=== PATIENT | female | born 1940 | race Caucasian/White ===

== ENCOUNTER 2016-07-01 23:28 | Emergency (ER) | payer MEDICARE, OTHER ==
[2016-07-02 00:12] VITALS: BP 145/74
[2016-07-02] MEDS ORDERED: fentaNYL 100 MCG/2 ML SDV IVPUSH ONE (00:24)
--- NOTE | 2016-07-02 00:24 | EDM.PDOC ---
ED HPI Trauma - General Chief Complaint: Lower Extremity Injury/Pain Stated Complaint: [facility] Time Seen by Provider: 07/01/16 23:45 Source: Reports: Patient, Old records, RN notes reviewed History Limitations: Reports: No limitations - History of Present Illness INITIAL COMMENTS - FREE TEXT/NARRATIVE: EMS arrival, fentanyl 50 mcg IV prior to arrival with good relief of pain Chief complaint Left knee pain HPI 76-year-old female lives on her own Has been picking at her house and packing because it's too large to place, since she lost her house mate. She's been having some aching in her left leg in particular over the last few days and some crunching and grinding pain behind the kneecap. She did wake her last night and she's been able to walk around limping but unable to fully weight-bear this evening. She was standing at home and move suddenly and then she felt a pop. She held onto pillar until the pain subsided been unable to weight-bear she fell down to the floor. She managed to crawl in order to get to a phone to call for help. She has pain on the top side of the kneecap and on the inside of the knee. 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: Musculoskeletal History: Reports: Arthritis - Past Surgical History Head Surgeries/Procedures: Reports: None Social & Family History - Tobacco Use Smoking Status *Q: Current Every Day Smoker Years of Tobacco use: 58 Packs/Tins Daily: 0.2 - Caffeine Use Caffeine Use: Reports: Coffee - Alcohol Use Days Per Week of Alcohol Use: 7 Number of Drinks Per Day: 2 Total Drinks Per Week: 14 - Recreational Drug Use Recreational Drug Use: No Review of Systems - Review of Systems Review Of Systems: See Below Constitutional: Reports: no symptoms Respiratory: Reports: No Symptoms Cardiovascular: Reports: no symptoms GI/Abdominal: Reports: No symptoms Musculoskeletal: Reports: joint pain (Left knee), other (Gait problem) Skin: Reports: no symptoms Neurological: Reports: No Symptoms Trauma Exam - Physical Exam Exam: See Below Exam Limited By: No limitations General Appearance: Reports: alert, mild distress, other (No difficulty speaking or breathing, Vital signs are normal) Head: Reports: atraumatic, normocephalic Neck: Reports: non-tender, full range of motion Respiratory Exam: Reports: no respiratory distress, no accessory muscle use Extremities: Reports: pain with movement (Left knee), tenderness (Medial aspect of the left knee along the joint line and on the superior aspect of the kneecap , crepitus with movement), unable to bear weight. Denies: joint effusion Neurologic: Reports: no motor/sensory deficits, alert, normal mood/affect Skin: Reports: Normal color, Warm/dry - Reece Coma Score Best Eye Response (Reece): (4) open spontaneously Best Verbal Response (Reece): (5) oriented Best Motor Response ([place]): (6) obeys commands Reece Total: 15 Course - Vital Signs Last Recorded V/S: Last Vital Signs Temp 36.6 C 07/01/16 23:39 Pulse 73 07/01/16 23:39 Resp 16 07/01/16 23:39 BP 145/74 H 07/01/16 23:39 Pulse Ox 95 07/01/16 23:39 - Orders/Labs/Meds Orders: Active Orders 24 hr Category Date Time Status Orthopedic Treatments [RC] ASDIRECTED Care 07/02/16 00:37 Active Knee 3V Lt [CR] Stat Exams 07/02/16 00:00 Taken Meds: Medications Discontinued Medications Generic Name Dose Route Start Last Admin Trade Name Deven PRN Reason Stop Dose Admin Fentanyl 50 mcg 07/02/16 00:24 07/02/16 00:38 Sublimaze IVPUSH 07/02/16 00:25 50 mcg ONETIME ONE Administration - Re-Assessments/Exams Free Text/Narrative Re-Assessment/Exam: 07/02/16 00:24 76-year-old female with acute left knee pain following a subtle movement Pain on the medial and superior aspects of the knee. Fentanyl 50 mcg IV repeated X-ray left knee negative for acute changes, no spurs or degenerative changes seen, small joint effusion Assessment Internal derangement of the knee Immobilizer Crutches as needed Pain medicine Followup primary care one week 07/02/16 00:38 Departure - Departure Time of Disposition: 23:55 Disposition: Home, Self-Care 01 Condition: good Clinical Impression: Internal derangement of left knee Prescriptions: Hydrocodone/Acetaminophen [Hydrocodon-Acetaminophen 5-325] 1 each PO Q4H PRN # 12 tablet PRN Reason: Moderate to severe pain left k Instructions: Knee Sprain, [id number] Referrals: PCP,None [Primary Care Provider] - Forms: ED Department Discharge Additional Instructions: Please make an appointment approximately one week to have your knee rechecked by your physician - My Orders Last 24 Hours: My Active Orders 07/02/16 00:00 Knee 3V Lt [CR] Stat 07/02/16 00:37 Orthopedic Treatments [RC] ASDIRECTED - Assessment/Plan Last 24 Hours: My Active Orders 07/02/16 00:00 Knee 3V Lt [CR] Stat 07/02/16 00:37 Orthopedic Treatments [RC] ASDIRECTED
--- NOTE | 2016-07-02 08:45 | CR ---
Knee 3V Lt INDICATION: left knee sudden pain FINDINGS: Tiny left knee effusion or synovitis. Exam otherwise negative.
== END 2016-07-02 01:07 | disposition home or self-care (01) ==
LOC: JP.ED 23:28
DX: M23.8X2 Other internal derangements of left knee (principal); H35.30 Unspecified macular degeneration; M19.90 Unspecified osteoarthritis, unspecified site; F17.200 Nicotine dependence, unspecified, uncomplicated; Z88.8 Allergy status to other drugs, medicaments and biological substances; Z91.048 Other nonmedicinal substance allergy status
CPT/HCPCS: 73562; 96374; 99284; J3010

== ENCOUNTER 2017-10-19 07:53 | Inpatient (IN) | payer MEDICARE, OTHER ==
[2017-10-19] MEDS ORDERED: HYDROmorphone 0.5 MG/0.5 ML Syringe IVPUSH ONE ×2 (08:50→10:40)
[2017-10-19] MEDS ORDERED: Sodium Chloride 0.9% 1,000 ML IV ONE (08:50)
--- NOTE | 2017-10-19 08:54 | EDM.PDOC ---
ED HPI GENERAL MEDICAL PROBLEM - General Chief Complaint: Lower Extremity Injury/Pain Stated Complaint: CAN'T WALK PAIN IN RIGHT HIP Time Seen by Provider: 10/19/17 08:40 Source of Information: Reports: Patient History Limitations: Reports: No Limitations - History of Present Illness INITIAL COMMENTS - FREE TEXT/NARRATIVE: 37-year-old female with right lower abdominal pain and right hip pain for the past 3 days, it started after she was riding on a lawnmower. Over the past 3 days it's been persistent, deep in her right lower abdomen and pelvis radiating down her right leg. She's having difficulty walking. She has decreased appetite , unknown if she's had a fever. No urinary symptoms. She spent all day yesterday on the couch because it was painful to move. Onset: Gradual Duration: Day(s): (3 days) Location: Reports: Abdomen Severity: Moderate Associated Symptoms: Reports: Loss of Appetite. Denies: Cough, Fever/Chills, Shortness of Breath Right Hip Pain Score (Numeric/FACES): 5 - Related Data Allergies Allergy/AdvReac Type Severity Reaction Status Date / Time nickel Allergy Blisters Verified 10/19/17 08:24 povidone-iodine Allergy Facial Verified 10/19/17 10:20 [From Betadine] Swelling soap [From Betadine] Allergy Facial Verified 10/19/17 10:20 Swelling Home Meds: Home Meds Ibuprofen [Advil] 400 mg PO Q6H PRN 09/01/16 [History] Past Medical History HEENT History: Reports: Macular Degeneration Genitourinary History: Reports: Other (See Below) Other Genitourinary History: bladder infection 1 1/2 weeks ago antibiotics 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: Musculoskeletal History: Reports: Arthritis - Infectious Disease History Infectious Disease History: Reports: Chicken Pox, Measles - Past Surgical History Head Surgeries/Procedures: Reports: None HEENT Surgical History: Reports: Cataract Surgery, Other (See Below) Other HEENT Surgeries/Procedures: teeth pulled Female Surgical History: Reports: None Musculoskeletal Surgical History: Reports: None Social & Family History - Tobacco Use Smoking Status *Q: Current Every Day Smoker Years of Tobacco use: 40 Packs/Tins Daily: 0.5 Used Tobacco, but Quit: No Second Hand Smoke Exposure: No - Caffeine Use Caffeine Use: Reports: Coffee - Alcohol Use Days Per Week of Alcohol Use: 7 Number of Drinks Per Day: 2 Total Drinks Per Week: 14 Date of Last Drink: 10/18/17 Time of Last Drink: 17:00 - Recreational Drug Use Recreational Drug Use: No ED ROS GENERAL - Review of Systems Review Of Systems: See Below Constitutional: Reports: Malaise. Denies: Fever, Chills HEENT: Reports: Other (Recent dental procedure and denture placement) Respiratory: Denies: Shortness of Breath, Cough Cardiovascular: Denies: Chest Pain GI/Abdominal: Reports: Abdominal Pain, Decreased Appetite. Denies: Constipation , Diarrhea, Nausea, Vomiting : Reports: Other (Recent UTI was treated, no current symptoms) Musculoskeletal: Reports: Leg Pain (Right upper leg is hurting) Skin: Reports: No Symptoms Neurological: Denies: Headache Psychiatric: Reports: No Symptoms ED EXAM, GENERAL - Physical Exam Exam: See Below Exam Limited By: No Limitations General Appearance: Alert, Mild Distress Eye Exam: Bilateral Eye: Normal Inspection Respiratory/Chest: No Respiratory Distress, Lungs Clear Cardiovascular: Regular Rate, Rhythm GI/Abdominal: Guarding, Rebound, Tender (Very tender in the right lower quadrant with guarding and rebound tenderness) Extremities: Normal Inspection (Despite perception of right lower extremity pain , she has full range of motion passively and no palpation tenderness) Course - Vital Signs Last Recorded V/S: Last Vital Signs Temp 97.2 F 10/19/17 13:46 Pulse 65 10/19/17 13:46 Resp 15 10/19/17 13:46 BP 138/68 10/19/17 13:46 Pulse Ox 96 10/19/17 13:46 - Orders/Labs/Meds Orders: Active Orders 24 hr Category Date Time Status UA W/MICROSCOPIC [URIN] Urgent Lab 10/19/17 09:51 Ordered Dextrose 5%-Lactated Ringers 1,000 ml Med 10/19/17 13:30 Active IV ASDIRECTED Iopamidol [Isovue-300 (61%)] Med 10/19/17 10:37 Active 100 ml IV . DIRECTED PRN Sodium Chloride 0.9% [Normal Saline] 80 ml Med 10/19/17 10:45 Active IV ASDIRECTED Sodium Chloride 0.9% [Saline Flush] Med 10/19/17 10:37 Active 10 ml FLUSH ONETIME PRN Medication Orders Sodium Chloride (Normal Saline) 80 mls @ 3 mls/sec IV ASDIRECTED BREANNA Last Admin: 10/19/17 10:43 Dose: 3 mls/sec Dextrose/Lactated Ringer's (Dextrose 5%-Lactated Ringers) 1,000 mls @ 100 mls/ hr IV ASDIRECTED BREANNA Stop: 10/19/17 23:29 Last Admin: 10/19/17 13:46 Dose: 100 mls/hr Iopamidol (Isovue-300 (61%)) 100 ml IV . DIRECTED PRN PRN Reason: RADIOLOGY EXAM Stop: 10/20/17 10:38 Last Admin: 10/19/17 10:43 Dose: 100 ml Sodium Chloride (Saline Flush) 10 ml FLUSH ONETIME PRN PRN Reason: per radiology protocol Last Admin: 10/19/17 10:41 Dose: 10 ml Labs: Laboratory Tests 10/19/17 10/19/17 10/19/17 Range/Units 09:00 09:00 09:51 WBC 7.6 (4.5-11.0) K/uL RBC 4.91 (3.30-5.50) M/uL Hgb 15.1 H (12.0-15.0) g/dL Hct 45.1 (36.0-48.0) % MCV 92 (80-98) fL MCH 31 (27-31) pg MCHC 34 (32-36) % Plt Count 259 (150-400) K/uL Neut % (Auto) 71 H (36-66) % Lymph % (Auto) 19 L (24-44) % [place] % (Auto) 8 H (2-6) % Eos % (Auto) 2 (2-4) % Baso % (Auto) 0 (0-1) % Sodium 141 (140-148) mmol/L Potassium 3.6 (3.6-5.2) mmol/L Chloride 106 (100-108) mmol/L Carbon Dioxide 24 (21-32) mmol/L Anion Gap 10.9 (5.0-14.0) mmol/L BUN 13 (7-18) mg/dL Creatinine 1.0 (0.6-1.0) mg/dL Est Cr Clr Drug Dosing 47.27 mL/min Estimated GFR (MDRD) 54 L (>60) Glucose 98 (74-106) mg/dL Calcium 8.9 (8.5-10.1) mg/dL Total Bilirubin 0.6 (0.2-1.0) mg/dL AST 19 (15-37) U/L ALT 23 (12-78) U/L Alkaline Phosphatase 94 (46-116) U/L Total Protein 6.8 (6.4-8.2) g/dL Albumin 3.5 (3.4-5.0) g/dL Globulin 3.3 (2.3-3.5) g/dL Albumin/Globulin Ratio 1.1 L (1.2-2.2) Urine Color Yellow Urine Appearance Clear Urine pH 8.0 (4.5-8.0) Ur Specific [place] 1.015 (1.008-1.030) Urine Protein Negative (NEGATIVE) mg/dL Urine Glucose (UA) Normal (NEGATIVE) mg/dL Urine Ketones Negative (NEGATIVE) mg/dL Urine Occult Blood Negative (NEGATIVE) Urine Nitrite Negative (NEGATIVE) Urine Bilirubin Negative (NEGATIVE) Urine Urobilinogen Normal (NORMAL) mg/dL Ur Leukocyte Esterase Negative (NEGATIVE) Urine RBC 0-5 (0-5) Urine WBC 0-5 (0-5) Ur Epithelial Cells Few Amorphous Sediment Not seen Urine Bacteria Not seen Urine Mucus Not seen Meds: Medications Generic Name Dose Route Start Last Admin Trade Name Frevivian PRN Reason Stop Dose Admin Sodium Chloride 80 mls @ 3 mls/sec 10/19/17 10:45 10/19/17 10:43 Normal Saline IV 3 mls/sec ASDIRECTED BREANNA Administration Dextrose/Lactated Ringer's 1,000 mls @ 100 mls/hr 10/19/17 13:30 10/19/17 13: 46 Dextrose 5%-Lactated Ringers IV 10/19/17 23:29 100 mls/hr ASDIRECTED BREANNA Administration Iopamidol 100 ml 10/19/17 10:37 10/19/17 10:43 Isovue-300 (61%) IV 10/20/17 10:38 100 ml . DIRECTED PRN Administration RADIOLOGY EXAM Sodium Chloride 10 ml 10/19/17 10:37 10/19/17 10:41 Saline Flush FLUSH 10 ml ONETIME PRN Administration per radiology protocol Discontinued Medications Generic Name Dose Route Start Last Admin Trade Name Freq PRN Reason Stop Dose Admin Dexamethasone Confirm 10/19/17 14:56 Dexamethasone Administered 10/19/17 14:57 Dose 4 mg .ROUTE .STK-MED ONE Fentanyl Confirm 10/19/17 14:55 Sublimaze Administered 10/19/17 14:56 Dose 250 mcg .ROUTE .STK-MED ONE Glycopyrrolate Confirm 10/19/17 14:56 Robinul Administered 10/19/17 14:57 Dose 1 mg .ROUTE .STK-MED ONE Hydromorphone HCl 0.5 mg 10/19/17 08:50 10/19/17 09:11 Dilaudid IVPUSH 10/19/17 08:51 0.5 mg ONETIME ONE Administration Hydromorphone HCl 0.5 mg 10/19/17 10:40 10/19/17 10:53 Dilaudid IVPUSH 10/19/17 10:41 0.5 mg ONETIME ONE Administration Sodium Chloride 1,000 mls @ 999 mls/hr 10/19/17 08:50 10/19/17 09:06 Normal Saline IV 10/19/17 09:50 999 mls/hr ONETIME ONE Administration Lidocaine/Epinephrine Confirm 10/19/17 14:53 Xylocaine 1% With Epinephrine 1:100,000 Administered 10/19/17 14:54 Dose 50 ml .ROUTE .STK-MED ONE Neostigmine Methylsulfate Confirm 10/19/17 14:56 Neostigmine Administered 10/19/17 14:57 Dose 5 mg .ROUTE .STK-MED ONE Ondansetron HCl Confirm 10/19/17 14:56 Zofran Administered 10/19/17 14:57 Dose 4 mg .ROUTE .STK-MED ONE Propofol Confirm 10/19/17 14:56 Diprivan 20 Ml Administered 10/19/17 14:57 Dose 200 mg .ROUTE .STK-MED ONE Rocuronium [place] Confirm 10/19/17 14:56 Zemuron Administered 10/19/17 14:57 Dose 50 mg .ROUTE .STK-MED ONE Succinylcholine Chloride Confirm 10/19/17 14:56 Quelicin Administered 10/19/17 14:57 Dose 200 mg .ROUTE .STK-MED ONE - Re-Assessments/Exams Free Text/Narrative Re-Assessment/Exam: 10/19/17 08:53 This pain appears to be originating in the lower abdomen or pelvis rather than the hip. An IV was started, patient was hydrated and given 0.5 mg of Dilaudid. CBC, CMP and UA was obtained with the intention of an abdominal CT when labs return. 10/19/17 13:15 CBC was normal, CMP was normal other than a GFR of 54. UA was completely normal. A CT scan was then obtained that showed a fairly significant cyst near or on the right ovary which was confirmed with an ultrasound. The cyst was almost 5 cm across. Reexamination revealed the patient's pain returning in the deep right lower quadrant. Her condition was discussed with Dr. Wu on the possibility of a right oophorectomy to see if it would relieve her pain, and also give the opportunity to send in for pathology. Departure - Departure Time of Disposition: 15:53 Disposition: Admitted As Inpatient 68 Condition: Fair Clinical Impression: Acute pelvic pain, female, Other ovarian cyst, right side - Discharge Information - My Orders Last 24 Hours: My Active Orders 10/19/17 09:51 UA W/MICROSCOPIC [URIN] Urgent 10/19/17 10:37 Iopamidol [Isovue-300 (61%)] 100 ml IV . DIRECTED PRN Sodium Chloride 0.9% [Saline Flush] 10 ml FLUSH ONETIME PRN 10/19/17 10:45 Sodium Chloride 0.9% [Normal Saline] 80 ml IV ASDIRECTED - Assessment/Plan Last 24 Hours: My Active Orders 10/19/17 09:51 UA W/MICROSCOPIC [URIN] Urgent 10/19/17 10:37 Iopamidol [Isovue-300 (61%)] 100 ml IV . DIRECTED PRN Sodium Chloride 0.9% [Saline Flush] 10 ml FLUSH ONETIME PRN 10/19/17 10:45 Sodium Chloride 0.9% [Normal Saline] 80 ml IV ASDIRECTED
[2017-10-19] MEDS ORDERED: Sodium Chloride 0.9% 10 ML Syringe FLUSH PRN (10:37)
[2017-10-19] MEDS ORDERED: Iopamidol 612 MG/ML 100 ML Bottle IV PRN (10:37)
[2017-10-19] MEDS ORDERED: Sodium Chloride 0.9% 80 ML IV SCH (10:45)
--- NOTE | 2017-10-19 11:21 | CT ---
Abdomen Pelvis w Cont CLINICAL HISTORY: Right lower quadrant pain COMPARISON: 2008. TECHNIQUE: Axial tomographic images are obtained from the dome of the diaphragm to the pubic symphysi s with IV contrast enhancement. No oral contrast was used. Auto dosage reduction and iterative recons truction techniques employed. FINDINGS: The lung bases are clear. The liver contains a few scattered tiny low-attenuation foci cons istent with the hepatic cysts. The some of these are seen on the 2009 study. The gallbladder has a no rmal appearance. The spleen has a normal size and shape. The pancreas shows no mass or inflammatory c hange. The adrenal glands appear normal bilaterally. The kidneys contains multiple low-attenuation st ructures consistent with renal cysts. There are prominent extrarenal pelvi bilaterally. The aorta ya s a normal contour. There is no suspicious retroperitoneal adenopathy. The appendix has a normal appe arance. The uterus is enlarged. There are multiple low-attenuation masses the seen within. The augmen inga these were present on the 2009 study. There is also densely calcified fibroid the inferiorly to t he left. The there is a fluid-filled mass in the right adnexal region measuring 4.3 x 3.7 x 4.7 cm. T he bladder has a normal contour. The inguinal regions are clear. Impression: Hepatic and left renal cysts Normal-appearing appendix 4.3 x 3.7 x 4.7 cm fluid density mass in the right adnexal region may represent a large ovarian cyst. This should be correlated with pelvic ultrasound considering patient's age Fibroid uterus
[2017-10-19] MEDS ORDERED: Dextrose 5%-Lactated Ringers 1,000 ML IV SCH (13:30)
--- NOTE | 2017-10-19 13:45 | US ---
Pelvis Non OB Comp, transabdominal and transvaginal CLINICAL HISTORY: Abnormal CT FINDINGS: The uterus measures 8.9 x 4.4 x 6.1 cm. There is moderately heterogeneous. There is a 3.3 x 3.2 x 2.9 cm hypoechoic focus felt to correlate to the findings on CT. There is a small [address]. In the right adnexal region is a 4.5 x 3.3 x 4.2 cm anechoic focus felt to represent a large ovar jyoti cyst. Left ovary measures 2.2 x 1.4 x 1.7 cm. IMPRESSION: 4.5 x 3.3 x 4.2 cm cyst in the right the ovary. The considering patient's age short-term follow-up is recommended in one to 2 months Fibroid uterus
[2017-10-19] MEDS ORDERED: Lidocaine 1% with EPINEPHrine 1:100,000 50 ML MDV ONE (14:53)
[2017-10-19] MEDS ORDERED: fentaNYL 250 MCG/5 ML SDV ONE (14:55)
[2017-10-19] MEDS ORDERED: Ondansetron 4 MG/2 ML SDV ONE (14:56)
[2017-10-19] MEDS ORDERED: Glycopyrrolate 0.2 MG/ML 5 ML MDV ONE (14:56)
[2017-10-19] MEDS ORDERED: Succinylcholine 200 MG/10 ML MDV ONE (14:56)
[2017-10-19] MEDS ORDERED: Propofol 200 MG/20 ML SDV ONE (14:56)
[2017-10-19] MEDS ORDERED: Rocuronium 50 MG/5 ML Vial ONE (14:56)
[2017-10-19] MEDS ORDERED: Dexamethasone 4 MG/ML SDV ONE (14:56)
[2017-10-19] MEDS ORDERED: Neostigmine Methylsulfate 1 MG/ML 5 ML Syringe ONE (14:56)
[2017-10-19] MEDS ORDERED: Bupivacaine 0.5% 50 ML MDV ONE (16:15)
[2017-10-19] MEDS ORDERED: Acetaminophen/HYDROcodone 325-5 MG Tab PO PRN (16:52)
[2017-10-19] MEDS ORDERED: fentaNYL 100 MCG/2 ML SDV ONE (17:10)
[2017-10-19] MEDS ORDERED: hydrOXYzine HCl 100 MG/2 ML SDV ONE (17:12)
[2017-10-19] MEDS ORDERED: hydrOXYzine HCl 100 MG/2 ML SDV IM ONE (17:19)
[2017-10-19] MEDS: Lactated Ringers 1,000 ML IV SCH (17:30)
[2017-10-19] MEDS: fentaNYL 100 MCG/2 ML SDV IVPUSH PRN (21:41)
[2017-10-19] MEDS: Docusate Sodium 100 MG Cap PO PRN (21:44)
[2017-10-19] MEDS ORDERED: hydrOXYzine HCl 100 MG/2 ML SDV IM PRN (21:50)
[2017-10-20] MEDS: Lactated Ringers 1,000 ML IV SCH (03:08)
--- NOTE | 2017-10-20 06:43 | PCM.SURGPN ---
- General Info Date of Service: 10/20/17 Date of Surgery/Procedure: 10/19/17 POD#: 1 Post-Op Diagnosis: Right ovarian cyst. Functional Status: Reports: Tolerating Diet (Clear liquids. ), Ambulating (With help.), Urinating, Incentive Spirometry - Review of Systems General: Reports: No Symptoms HEENT: Reports: No Symptoms Pulmonary: Reports: No Symptoms Cardiovascular: Reports: No Symptoms Gastrointestinal: Reports: No Symptoms Genitourinary: Reports: No Symptoms Musculoskeletal: Reports: Leg Pain (Pain in right groin radiating down into right thigh. ) Skin: Reports: No Symptoms Neurological: Reports: No Symptoms Psychiatric: Reports: No Symptoms - Patient Data Vitals - Most Recent: Last Vital Signs Temp 96.8 F 10/20/17 03:04 Pulse 64 10/20/17 03:04 Resp 16 10/20/17 03:04 BP 138/63 10/20/17 03:04 Pulse Ox 94 L 10/20/17 03:04 Weight - Most Recent: 158 lb I&O - Last 24 Hours: Intake & Output 10/19/17 10/19/17 10/20/17 14:59 22:59 06:59 Intake Total 100 1218 Output Total 400 Balance -300 1218 Lab Results Last 24 Hrs: Laboratory Results - last 24 hr 10/19/17 10/19/17 10/19/17 Range/Units 09:00 09:00 09:51 WBC 7.6 (4.5-11.0) K/uL RBC 4.91 (3.30-5.50) M/uL Hgb 15.1 H (12.0-15.0) g/dL Hct 45.1 (36.0-48.0) % MCV 92 (80-98) fL MCH 31 (27-31) pg MCHC 34 (32-36) % Plt Count 259 (150-400) K/uL Neut % (Auto) 71 H (36-66) % Lymph % (Auto) 19 L (24-44) % [place] % (Auto) 8 H (2-6) % Eos % (Auto) 2 (2-4) % Baso % (Auto) 0 (0-1) % Sodium 141 (140-148) mmol/L Potassium 3.6 (3.6-5.2) mmol/L Chloride 106 (100-108) mmol/L Carbon Dioxide 24 (21-32) mmol/L Anion Gap 10.9 (5.0-14.0) mmol/L BUN 13 (7-18) mg/dL Creatinine 1.0 (0.6-1.0) mg/dL Est Cr Clr Drug Dosing 47.27 mL/min Estimated GFR (MDRD) 54 L (>60) Glucose 98 (74-106) mg/dL Calcium 8.9 (8.5-10.1) mg/dL Total Bilirubin 0.6 (0.2-1.0) mg/dL AST 19 (15-37) U/L ALT 23 (12-78) U/L Alkaline Phosphatase 94 (46-116) U/L Total Protein 6.8 (6.4-8.2) g/dL Albumin 3.5 (3.4-5.0) g/dL Globulin 3.3 (2.3-3.5) g/dL Albumin/Globulin Ratio 1.1 L (1.2-2.2) Urine Color Yellow Urine Appearance Clear Urine pH 8.0 (4.5-8.0) Ur Specific [place] 1.015 (1.008-1.030) Urine Protein Negative (NEGATIVE) mg/dL Urine Glucose (UA) Normal (NEGATIVE) mg/dL Urine Ketones Negative (NEGATIVE) mg/dL Urine Occult Blood Negative (NEGATIVE) Urine Nitrite Negative (NEGATIVE) Urine Bilirubin Negative (NEGATIVE) Urine Urobilinogen Normal (NORMAL) mg/dL Ur Leukocyte Esterase Negative (NEGATIVE) Urine RBC 0-5 (0-5) Urine WBC 0-5 (0-5) Ur Epithelial Cells Few Amorphous Sediment Not seen Urine Bacteria Not seen Urine Mucus Not seen 10/20/17 10/20/17 Range/Units 05:10 05:10 WBC 11.1 H (4.5-11.0) K/uL RBC 4.47 (3.30-5.50) M/uL Hgb 13.9 (12.0-15.0) g/dL Hct 41.9 (36.0-48.0) % MCV 94 (80-98) fL MCH 31 (27-31) pg MCHC 33 (32-36) % Plt Count 216 (150-400) K/uL Neut % (Auto) 86 H (36-66) % Lymph % (Auto) 8 L (24-44) % [place] % (Auto) 6 (2-6) % Eos % (Auto) 0 L (2-4) % Baso % (Auto) 0 (0-1) % Sodium 140 (140-148) mmol/L Potassium 4.2 (3.6-5.2) mmol/L Chloride 107 (100-108) mmol/L Carbon Dioxide 26 (21-32) mmol/L Anion Gap 7.2 (5.0-14.0) mmol/L BUN 13 (7-18) mg/dL Creatinine 0.9 (0.6-1.0) mg/dL Est Cr Clr Drug Dosing 52.52 mL/min Estimated GFR (MDRD) > 60 (>60) Glucose 103 (74-106) mg/dL Calcium 8.6 (8.5-10.1) mg/dL Total Bilirubin (0.2-1.0) mg/dL AST (15-37) U/L ALT (12-78) U/L Alkaline Phosphatase (46-116) U/L Total Protein (6.4-8.2) g/dL Albumin (3.4-5.0) g/dL Globulin (2.3-3.5) g/dL Albumin/Globulin Ratio (1.2-2.2) Urine Color Urine Appearance Urine pH (4.5-8.0) Ur Specific [place] (1.008-1.030) Urine Protein (NEGATIVE) mg/dL Urine Glucose (UA) (NEGATIVE) mg/dL Urine Ketones (NEGATIVE) mg/dL Urine Occult Blood (NEGATIVE) Urine Nitrite (NEGATIVE) Urine Bilirubin (NEGATIVE) Urine Urobilinogen (NORMAL) mg/dL Ur Leukocyte Esterase (NEGATIVE) Urine RBC (0-5) Urine WBC (0-5) Ur Epithelial Cells Amorphous Sediment Urine Bacteria Urine Mucus Med Orders - Current: Current Medications Docusate Sodium (Colace) 100 mg PO BID PRN PRN Reason: Constipation Last Admin: 10/19/17 21:44 Dose: 100 mg Fentanyl (Sublimaze) 50 mcg IVPUSH Q1H PRN PRN Reason: Pain (severe 7-10) Last Admin: 10/19/17 21:41 Dose: 50 mcg Hydroxyzine HCl (Vistaril) 50 - 75 mg IM Q4H PRN PRN Reason: Pain Sodium Chloride (Normal Saline) 80 mls @ 3 mls/sec IV ASDIRECTED [facility] Last Admin: 10/19/17 10:43 Dose: 3 mls/sec Lactated Ringer's (Ringers, Lactated) 1,000 mls @ 100 mls/hr IV ASDIRECTED [facility] Last Admin: 10/20/17 03:08 Dose: 100 mls/hr Iopamidol (Isovue-300 (61%)) 100 ml IV . DIRECTED PRN PRN Reason: RADIOLOGY EXAM Stop: 10/20/17 10:38 Last Admin: 10/19/17 10:43 Dose: 100 ml Oxycodone/Acetaminophen (Percocet 325-5 Mg) 1 - 2 tab PO Q4H PRN PRN Reason: Pain Sodium Chloride (Saline Flush) 10 ml FLUSH ONETIME PRN PRN Reason: per radiology protocol Last Admin: 10/19/17 10:41 Dose: 10 ml Discontinued Medications Hydrocodone Bitart/Acetaminophen ([place] 325-5 Mg) 2 tab PO Q4H PRN PRN Reason: Pain (moderate 4-6) Last Admin: 10/19/17 19:26 Dose: 2 tab Bupivacaine HCl (Marcaine 0.5%) Confirm Administered Dose 50 ml .ROUTE .STK-MED ONE Stop: 10/19/17 16:16 Last Admin: 10/19/17 16:20 Dose: 10 ml Dexamethasone (Dexamethasone) Confirm Administered Dose 4 mg .ROUTE .STK-MED ONE Stop: 10/19/17 14:57 Fentanyl (Sublimaze) Confirm Administered Dose 250 mcg .ROUTE .STK-MED ONE Stop: 10/19/17 14:56 Fentanyl (Sublimaze) Confirm Administered Dose 100 mcg .ROUTE .STK-MED ONE Stop: 10/19/17 17:11 Glycopyrrolate (Robinul) Confirm Administered Dose 1 mg .ROUTE .STK-MED ONE Stop: 10/19/17 14:57 Hydromorphone HCl (Dilaudid) 0.5 mg IVPUSH ONETIME ONE Stop: 10/19/17 08:51 Last Admin: 10/19/17 09:11 Dose: 0.5 mg Hydromorphone HCl (Dilaudid) 0.5 mg IVPUSH ONETIME ONE Stop: 10/19/17 10:41 Last Admin: 10/19/17 10:53 Dose: 0.5 mg Hydroxyzine HCl (Vistaril) Confirm Administered Dose 100 mg .ROUTE .STK-MED ONE Stop: 10/19/17 17:13 Last Admin: 10/19/17 17:25 Dose: 100 mg Hydroxyzine HCl (Vistaril) 50 mg IM ONETIME ONE Stop: 10/19/17 17:20 Last Admin: 10/19/17 19:36 Dose: Not Given Sodium Chloride (Normal Saline) 1,000 mls @ 999 mls/hr IV ONETIME ONE Stop: 10/19/17 09:50 Last Admin: 10/19/17 09:06 Dose: 999 mls/hr Dextrose/Lactated Ringer's (Dextrose 5%-Lactated Ringers) 1,000 mls @ 100 mls/ hr IV ASDIRECTED [facility] Stop: 10/19/17 23:29 Last Admin: 10/19/17 13:46 Dose: 100 mls/hr Lidocaine/Epinephrine (Xylocaine 1% With Epinephrine 1:100,000) Confirm Administered Dose 50 ml .ROUTE .STK-MED ONE Stop: 10/19/17 14:54 Last Admin: 10/19/17 16:20 Dose: 10 ml Neostigmine Methylsulfate (Neostigmine) Confirm Administered Dose 5 mg .ROUTE .STK-MED ONE Stop: 10/19/17 14:57 Ondansetron HCl (Zofran) Confirm Administered Dose 4 mg .ROUTE .STK-MED ONE Stop: 10/19/17 14:57 Propofol (Diprivan 20 Ml) Confirm Administered Dose 200 mg .ROUTE .STK-MED ONE Stop: 10/19/17 14:57 Rocuronium [place] (Zemuron) Confirm Administered Dose 50 mg .ROUTE .STK-MED ONE Stop: 10/19/17 14:57 Succinylcholine Chloride (Quelicin) Confirm Administered Dose 200 mg .ROUTE .STK -MED ONE Stop: 10/19/17 14:57 - Exam Wound/Incisions: Healing Well, No Drainage Quality Assessment: DVT Prophylaxis General: Alert, Oriented, Cooperative, No Acute Distress Lungs: Clear to Auscultation, Normal Respiratory Effort Cardiovascular: Regular Rate, Regular Rhythm GI/Abdominal Exam: Normal Bowel Sounds, Soft, Non-Tender, No Organomegaly, No Distention, No Abnormal Bruit, No Mass, Pelvis Stable Extremities: Normal Inspection Skin: Warm, Dry, Intact Neurological: No New Focal Deficit Psy/Mental Status: Alert, Normal Affect, Normal Mood - Problem List Review Problem List Initiated/Reviewed/Updated: Yes - My Orders Last 24 Hours: Active Orders 24 hr Category Date Time Status Patient Status [ADT] Routine ADT 10/19/17 16:52 Active Ambulate [RC] PER UNIT ROUTINE Care 10/19/17 16:52 Active Antiembolic Devices [RC] .Routine Care 10/19/17 16:56 Active Dorsiflex/Plantar flex x 10 [RC] QSHIFT Care 10/19/17 16:52 Active Head of Bed Elevation [RC] CONTINUOUS Care 10/19/17 16:52 Active Intake and Output [RC] Q4HR Care 10/19/17 16:54 Active Notify Provider Vital Signs [RC] PRN Care 10/19/17 16:54 Active Oxygen Therapy [RC] PRN Care 10/19/17 16:52 Active Pneumonia Education [RC] UPON Care 10/19/17 16:52 Active Pulse Oximetry [RC] CONTINUOUS Care 10/19/17 16:54 Active RT Incentive Spirometry [RC] Q1HWA Care 10/19/17 16:52 Active Turn, Cough, Deep Breathe [RC] Q1HWA Care 10/19/17 16:52 Active Up With Assistance [RC] ASDIRECTED Care 10/19/17 16:52 Active Up ad Yulissa [RC] ASDIRECTED Care 10/19/17 16:52 Active Up to Chair [RC] TIDMEALS Care 10/19/17 16:52 Active VTE/DVT Education [RC] Click to Edit Care 10/19/17 16:56 Active Respiratory Care Assess and Treatment [CONS] Routine Cons 10/19/17 16:52 Active Advance Diet Instructions [DIET] Diet 10/19/17 Dinner Active UA W/MICROSCOPIC [URIN] Urgent Lab 10/19/17 09:51 Ordered Acetaminophen/oxyCODONE [Percocet 325-5 MG] Med 10/19/17 21:51 Active 1 - 2 tab PO Q4H PRN Docusate Sodium [Colace] Med 10/19/17 16:52 Active 100 mg PO BID PRN Iopamidol [Isovue-300 (61%)] Med 10/19/17 10:37 Active 100 ml IV . DIRECTED PRN Lactated Ringers [Ringers, Lactated] 1,000 ml Med 10/19/17 17:00 Active IV ASDIRECTED Sodium Chloride 0.9% [Normal Saline] 80 ml Med 10/19/17 10:45 Active IV ASDIRECTED Sodium Chloride 0.9% [Saline Flush] Med 10/19/17 10:37 Active 10 ml FLUSH ONETIME PRN fentaNYL [Sublimaze] Med 10/19/17 16:52 Active 50 mcg IVPUSH Q1H PRN hydrOXYzine HCl [Vistaril] Med 10/19/17 21:50 Active 50 - 75 mg IM Q4H PRN Abdominal Binder [OM.PC] Per Unit Routine Oth 10/19/17 16:54 Ordered DVT/VTE Prophylaxis Reflex [OM.PC] Per Unit Routine Oth 10/19/17 16:56 Ordered Sequential Compression Device [OM.PC] Routine Oth 10/19/17 16:52 Ordered Resuscitation Status Routine Resus Stat 10/19/17 16:52 Ordered Medication Orders Docusate Sodium (Colace) 100 mg PO BID PRN PRN Reason: Constipation Last Admin: 10/19/17 21:44 Dose: 100 mg Fentanyl (Sublimaze) 50 mcg IVPUSH Q1H PRN PRN Reason: Pain (severe 7-10) Last Admin: 10/19/17 21:41 Dose: 50 mcg Hydroxyzine HCl (Vistaril) 50 - 75 mg IM Q4H PRN PRN Reason: Pain Sodium Chloride (Normal Saline) 80 mls @ 3 mls/sec IV ASDIRECTED [facility] Last Admin: 10/19/17 10:43 Dose: 3 mls/sec Lactated Ringer's (Ringers, Lactated) 1,000 mls @ 100 mls/hr IV ASDIRECTED [facility] Last Admin: 10/20/17 03:08 Dose: 100 mls/hr Infusion: 10/20/17 03:08 Dose: 100 mls/hr Admin: 10/19/17 17:30 Dose: 100 mls/hr Iopamidol (Isovue-300 (61%)) 100 ml IV . DIRECTED PRN PRN Reason: RADIOLOGY EXAM Stop: 10/20/17 10:38 Last Admin: 10/19/17 10:43 Dose: 100 ml Oxycodone/Acetaminophen (Percocet 325-5 Mg) 1 - 2 tab PO Q4H PRN PRN Reason: Pain Sodium Chloride (Saline Flush) 10 ml FLUSH ONETIME PRN PRN Reason: per radiology protocol Last Admin: 10/19/17 10:41 Dose: 10 ml - Assessment Assessment (Free Text/Narrative):: Right groin pain radiating into right thigh. - Plan Plan (Free Text/Narrative):: Follow.
--- NOTE | 2017-10-20 08:30 | OR ---
DATE OF PROCEDURE: 10/19/2017 PREOPERATIVE DIAGNOSIS: Pelvic pain, right ovarian cyst. POSTOPERATIVE DIAGNOSIS: Pelvic pain, right ovarian cyst. PROCEDURE: Right salpingo-oophorectomy laparoscopically. SURGEON: Brett Wu MD. ANESTHESIA: IV anesthesia with monitored anesthesia care. INDICATIONS: This 77-year-old white female presented to the emergency room today complaining of right lower quadrant abdominal pain. CAT scan of her abdomen and pelvis was unremarkable except for about a 4.7 cm right ovarian cyst. I had a long discussion with her and decided to proceed with a right oophorectomy, possible salpingo- oophorectomy. I counseled her for surgery including risks, alternatives, and she gave her informed consent to proceed. DESCRIPTION OF PROCEDURE: After adequate general endotracheal anesthesia was obtained, she was placed in low lithotomy. Her perineum and vagina were prepped with saline and baby soap as she is allergic to Betadine. The bladder was drained of residual urine with a red rubber [place] catheter. A vaginal speculum was placed and under direct vision, a uterine elevator was placed. Her abdomen was then prepped and draped in the usual sterile fashion. Time-out was held before placing the uterine elevator and before entering the abdomen. An infraumbilical semicircular incision was made. Under direct vision, a 12-mm port was introduced int the abdomen through this incision. The camera was introduced into the abdomen and the abdomen was insufflated to a pressure of 20 mmHg with carbon dioxide. No evidence of intraabdominal injury was seen. Under direct vision, 12-mm ports were placed in the right lower and left lower quadrants. The abdomen was explored. The right ovarian cyst was identified. We decided to do a right salpingo-oophorectomy. This was done by dividing the fallopian tube right at the uterus with a cazares load using the endoscopic IRAIDA. We then divided the gonadal vessels and the broad ligament associated with the tube and ovary again using cazares loads of the IRAIDA stapler. The specimen was then placed in a sample retrieval bag and the bag was elevated up through the right incision. We ruptured the cyst inside the bag and then delivered the bag with contents from the abdomen. No fluid was released into the abdomen. This was delivered from the field. The 12-mm port was reintroduced back into the abdomen on the right side. All looked well. The fascial closure device was used to place 0 Vicryl stitches in the right lower and left lower fascial defects. After they were both placed they were tied down, all looked well. The infraumbilical incision was closed with an interrupted stitch of 0 Vicryl. Before tying this down, we evacuated as much CO2 as we could from the abdomen, this stitch was then tied down. The incisions were then anesthetized with lidocaine 1% with epinephrine in a 50:50 mix with 0.5% Marcaine. Subcuticular stitches with 4-0 Vicryl were placed to approximate the skin incisions. Dermabond was applied. The uterine elevator was removed. She was taken out of low lithotomy. The anesthesia was reversed. She was extubated and brought to recovery room in good condition. Brett Wu MD /[id number]
[2017-10-20] MEDS: fentaNYL 100 MCG/2 ML SDV IVPUSH PRN (09:27)
[2017-10-20] MEDS: Docusate Sodium 100 MG Cap PO PRN (09:32)
[2017-10-20] MEDS: Acetaminophen/oxyCODONE 325-5 MG Tab PO PRN ×3 (09:36→21:50)
[2017-10-20] MEDS ORDERED: Ondansetron 4 MG Tab.DIS PO PRN (21:41)
[2017-10-21] MEDS: Acetaminophen/oxyCODONE 325-5 MG Tab PO PRN ×4 (04:54→20:38)
[2017-10-21] MEDS: fentaNYL 100 MCG/2 ML SDV IVPUSH PRN (10:29)
--- NOTE | 2017-10-21 12:53 | PCM.SURGPN ---
- General Info Date of Service: 10/21/17 Date of Surgery/Procedure: 10/19/17 POD#: 2 Post-Op Diagnosis: Right groin pain, right ovarian cyst Admission Diagnosis/Problem: Pain Functional Status: Reports: Tolerating Diet, Urinating, Incentive Spirometry - Review of Systems General: Reports: Other (Pain right groin into right thigh. ) HEENT: Reports: No Symptoms Pulmonary: Reports: No Symptoms Cardiovascular: Reports: No Symptoms Gastrointestinal: Reports: No Symptoms (Eating well, passing gas. ) Genitourinary: Reports: No Symptoms Musculoskeletal: Reports: Leg Pain (Right groin into right thigh. ) Skin: Reports: No Symptoms Neurological: Reports: Paresthesia (Numbness also in right thigh. ) Psychiatric: Reports: No Symptoms - Patient Data Vitals - Most Recent: Last Vital Signs Temp 98.3 F 10/21/17 10:32 Pulse 69 10/21/17 10:32 Resp 16 10/21/17 10:32 BP 104/56 L 10/21/17 10:32 Pulse Ox 93 L 10/21/17 10:32 Weight - Most Recent: 158 lb 0.014 oz I&O - Last 24 Hours: Intake & Output 10/20/17 10/21/17 10/21/17 22:59 06:59 14:59 Intake Total 1156 360 Output Total 825 550 200 Balance 331 -550 160 Med Orders - Current: Current Medications Docusate Sodium (Colace) 100 mg PO BID PRN PRN Reason: Constipation Last Admin: 10/20/17 09:32 Dose: 100 mg Fentanyl (Sublimaze) 50 mcg IVPUSH Q1H PRN PRN Reason: Pain (severe 7-10) Last Admin: 10/21/17 10:29 Dose: 50 mcg Hydroxyzine HCl (Vistaril) 50 - 75 mg IM Q4H PRN PRN Reason: Pain Lactated Ringer's (Ringers, Lactated) 1,000 mls @ 100 mls/hr IV ASDIRECTED [facility] Last Admin: 10/20/17 03:08 Dose: 100 mls/hr Ondansetron HCl (Zofran Odt) 4 mg PO Q4H PRN PRN Reason: Nausea/Vomiting Last Admin: 10/20/17 21:50 Dose: 4 mg Oxycodone/Acetaminophen (Percocet 325-5 Mg) 1 - 2 tab PO Q4H PRN PRN Reason: Pain Last Admin: 10/21/17 10:04 Dose: 2 tab Sodium Chloride (Saline Flush) 10 ml FLUSH ONETIME PRN PRN Reason: per radiology protocol Last Admin: 10/19/17 10:41 Dose: 10 ml Discontinued Medications Hydrocodone Bitart/Acetaminophen ([place] 325-5 Mg) 2 tab PO Q4H PRN PRN Reason: Pain (moderate 4-6) Last Admin: 10/19/17 19:26 Dose: 2 tab Bupivacaine HCl (Marcaine 0.5%) Confirm Administered Dose 50 ml .ROUTE .STK-MED ONE Stop: 10/19/17 16:16 Last Admin: 10/19/17 16:20 Dose: 10 ml Dexamethasone (Dexamethasone) Confirm Administered Dose 4 mg .ROUTE .STK-MED ONE Stop: 10/19/17 14:57 Fentanyl (Sublimaze) Confirm Administered Dose 250 mcg .ROUTE .STK-MED ONE Stop: 10/19/17 14:56 Fentanyl (Sublimaze) Confirm Administered Dose 100 mcg .ROUTE .STK-MED ONE Stop: 10/19/17 17:11 Glycopyrrolate (Robinul) Confirm Administered Dose 1 mg .ROUTE .STK-MED ONE Stop: 10/19/17 14:57 Hydromorphone HCl (Dilaudid) 0.5 mg IVPUSH ONETIME ONE Stop: 10/19/17 08:51 Last Admin: 10/19/17 09:11 Dose: 0.5 mg Hydromorphone HCl (Dilaudid) 0.5 mg IVPUSH ONETIME ONE Stop: 10/19/17 10:41 Last Admin: 10/19/17 10:53 Dose: 0.5 mg Hydroxyzine HCl (Vistaril) Confirm Administered Dose 100 mg .ROUTE .STK-MED ONE Stop: 10/19/17 17:13 Last Admin: 10/19/17 17:25 Dose: 100 mg Hydroxyzine HCl (Vistaril) 50 mg IM ONETIME ONE Stop: 10/19/17 17:20 Last Admin: 10/19/17 19:36 Dose: Not Given Sodium Chloride (Normal Saline) 1,000 mls @ 999 mls/hr IV ONETIME ONE Stop: 10/19/17 09:50 Last Admin: 10/19/17 09:06 Dose: 999 mls/hr Sodium Chloride (Normal Saline) 80 mls @ 3 mls/sec IV ASDIRECTED [facility] Last Admin: 10/19/17 10:43 Dose: 3 mls/sec Dextrose/Lactated Ringer's (Dextrose 5%-Lactated Ringers) 1,000 mls @ 100 mls/ hr IV ASDIRECTED [facility] Stop: 10/19/17 23:29 Last Admin: 10/19/17 13:46 Dose: 100 mls/hr Iopamidol (Isovue-300 (61%)) 100 ml IV . DIRECTED PRN PRN Reason: RADIOLOGY EXAM Stop: 10/20/17 10:38 Last Admin: 10/19/17 10:43 Dose: 100 ml Lidocaine/Epinephrine (Xylocaine 1% With Epinephrine 1:100,000) Confirm Administered Dose 50 ml .ROUTE .STK-MED ONE Stop: 10/19/17 14:54 Last Admin: 10/19/17 16:20 Dose: 10 ml Neostigmine Methylsulfate (Neostigmine) Confirm Administered Dose 5 mg .ROUTE .STK-MED ONE Stop: 10/19/17 14:57 Ondansetron HCl (Zofran) Confirm Administered Dose 4 mg .ROUTE .STK-MED ONE Stop: 10/19/17 14:57 Propofol (Diprivan 20 Ml) Confirm Administered Dose 200 mg .ROUTE .STK-MED ONE Stop: 10/19/17 14:57 Rocuronium [place] (Zemuron) Confirm Administered Dose 50 mg .ROUTE .STK-MED ONE Stop: 10/19/17 14:57 Succinylcholine Chloride (Quelicin) Confirm Administered Dose 200 mg .ROUTE .STK -MED ONE Stop: 10/19/17 14:57 - Exam Wound/Incisions: Healing Well, No Drainage General: Alert, Oriented, Cooperative, No Acute Distress Lungs: Clear to Auscultation, Normal Respiratory Effort Cardiovascular: Regular Rate, Regular Rhythm GI/Abdominal Exam: Normal Bowel Sounds, Soft, Non-Tender Extremities: Normal Inspection, Other (No obvious right inguinal hernia. ) Skin: Warm, Dry, Intact Neurological: No New Focal Deficit Psy/Mental Status: Alert, Normal Affect, Normal Mood - Problem List & Annotations (1) Status post right oophorectomy SNOMED Code(s): 213493335, 838755450 Code(s): Z90.721 - ACQUIRED ABSENCE OF OVARIES, UNILATERAL Status: Acute Current Visit: Yes - Problem List Review Problem List Initiated/Reviewed/Updated: Yes - My Orders Last 24 Hours: Active Orders 24 hr Category Date Time Status Notify Provider Consults [RC] ASDIRECTED Care 10/21/17 12:44 Ordered Consult to Physician [CONS] Routine Cons 10/21/17 12:41 Ordered Ondansetron [Zofran ODT] Med 10/20/17 21:41 Active 4 mg PO Q4H PRN Medication Orders Docusate Sodium (Colace) 100 mg PO BID PRN PRN Reason: Constipation Last Admin: 10/20/17 09:32 Dose: 100 mg Admin: 10/19/17 21:44 Dose: 100 mg Fentanyl (Sublimaze) 50 mcg IVPUSH Q1H PRN PRN Reason: Pain (severe 7-10) Last Admin: 10/21/17 10:29 Dose: 50 mcg Admin: 10/20/17 09:27 Dose: 50 mcg Admin: 10/19/17 21:41 Dose: 50 mcg Hydroxyzine HCl (Vistaril) 50 - 75 mg IM Q4H PRN PRN Reason: Pain Lactated Ringer's (Ringers, Lactated) 1,000 mls @ 100 mls/hr IV ASDIRECTED [facility] Last Admin: 10/20/17 03:08 Dose: 100 mls/hr Infusion: 10/20/17 03:08 Dose: 100 mls/hr Admin: 10/19/17 17:30 Dose: 100 mls/hr Ondansetron HCl (Zofran Odt) 4 mg PO Q4H PRN PRN Reason: Nausea/Vomiting Last Admin: 10/20/17 21:50 Dose: 4 mg Oxycodone/Acetaminophen (Percocet 325-5 Mg) 1 - 2 tab PO Q4H PRN PRN Reason: Pain Last Admin: 10/21/17 10:04 Dose: 2 tab Admin: 10/21/17 04:54 Dose: 2 tab Admin: 10/20/17 21:50 Dose: 2 tab Admin: 10/20/17 14:25 Dose: 2 tab Admin: 10/20/17 09:36 Dose: 2 tab Sodium Chloride (Saline Flush) 10 ml FLUSH ONETIME PRN PRN Reason: per radiology protocol Last Admin: 10/19/17 10:41 Dose: 10 ml - Assessment Assessment (Free Text/Narrative):: This morning she said she was better and wanted to go home. She is eating well and passing gas. However, when she tried to walk she doubled up in pain and could not walk. PT saw her yesterday and notes that she can not walk. - Plan Plan (Free Text/Narrative):: I have spoken to Dr. Castro who I am consulting to see what he thinks we should do for her. He will see her later today. She can not go home yet.
[2017-10-21] MEDS: Docusate Sodium 100 MG Cap PO PRN (15:15)
--- NOTE | 2017-10-21 17:41 | PCM.CONS ---
H&P History of Present Illness - General Date of Service: 10/21/17 Admit Problem/Dx: Admission Diagnosis/Problem Admission Diagnosis/Problem Pain Admission Diagnosis/Problem Ovarian cyst Source of Information: Patient, Provider, RN Notes Reviewed History Limitations: Reports: No Limitations - History of Present Illness Initial Comments - Free Text/Narative: This patient is a 77-year-old woman who I been asked to see by Dr. Wu for further suggestions concerning evaluation and management of right groin and thigh pain. She was feeling well until 5 days ago when she noted abrupt onset of pain in her upper thigh radiating towards the knee. This occurred after she been on her riding lawnmower for some period of time. Pain bothered her intermittently during the day when it started, the following day she really had no significant pain. 3 days prior to admission the pain became worse and was definitely associated with activity. She presented for evaluation 2 days ago to the emergency department. CT scan of the abdomen and pelvis was obtained and showed evidence of a large cystic mass on the right ovary, this was felt to represent a potential source of pain and she is undergone resection. Despite resection of the ovarian cyst she has had ongoing pain in her thigh as described. The pain does have a numb sensation but she denies specific weakness and the pain does not radiate past her knee. She denies any history of significant arthritis in the right hip and pain does not seem to be worse with movement at the hip joint. Right Hip Pain Score (Numeric/FACES): 5 Right Anterior Groin Pain Score (Numeric/FACES): 3 - Related Data Allergies/Adverse Reactions: Allergies Allergy/AdvReac Type Severity Reaction Status Date / Time nickel Allergy Blisters Verified 10/19/17 08:24 povidone-iodine Allergy Facial Verified 10/19/17 10:20 [From Betadine] Swelling soap [From Betadine] Allergy Facial Verified 10/19/17 10:20 Swelling Home Medications: Home Meds Ibuprofen [Advil] 400 mg PO Q6H PRN 09/01/16 [History] Past Medical History HEENT History: Reports: Macular Degeneration Genitourinary History: Reports: Other (See Below) Other Genitourinary History: bladder infection 1 1/2 weeks ago antibiotics done [employer] History: Reports: Musculoskeletal History: Reports: Arthritis - Infectious Disease History Infectious Disease History: Reports: Chicken Pox, Measles - Past Surgical History Head Surgeries/Procedures: Reports: None HEENT Surgical History: Reports: Cataract Surgery, Other (See Below) Other HEENT Surgeries/Procedures: teeth pulled Female Surgical History: Reports: None Musculoskeletal Surgical History: Reports: None Social & Family History - Family History Family Medical History: Unobtainable - Tobacco Use Smoking Status *Q: Current Every Day Smoker Years of Tobacco use: 40 Packs/Tins Daily: 0.5 Used Tobacco, but Quit: No Second Hand Smoke Exposure: No - Caffeine Use Caffeine Use: Reports: Coffee - Alcohol Use Days Per Week of Alcohol Use: 7 Number of Drinks Per Day: 2 Total Drinks Per Week: 14 Date of Last Drink: 10/18/17 Time of Last Drink: 17:00 - Recreational Drug Use Recreational Drug Use: No H&P Review of Systems - Review of Systems: Review Of Systems: See Below General: Denies: Fever, Chills, Weakness Pulmonary: Reports: No Symptoms Cardiovascular: Reports: No Symptoms Gastrointestinal: Reports: Abdominal Pain. Denies: Black Stool, Bloody Stool, Difficulty Swallowing, Distension, Nausea, Vomiting Genitourinary: Reports: No Symptoms Exam - Exam Exam: See Below - Vital Signs Vital Signs: Last Vital Signs Temp 97.8 F 10/21/17 14:46 Pulse 66 10/21/17 14:46 Resp 16 10/21/17 14:46 BP 122/71 10/21/17 14:46 Pulse Ox 93 L 10/21/17 14:46 Weight: 158 lb 0.014 oz - Exam General: Alert, Oriented, Cooperative, Mild Distress Neck: Supple, Trachea Midline, +2 Carotid Pulse wo Bruit Lungs: Clear to Auscultation, Normal Respiratory Effort Cardiovascular: Regular Rate, Regular Rhythm, Normal S1, Normal S2 GI/Abdominal Exam: Soft, Non-Tender, No Organomegaly, No Distention Extremities: Non-Tender, No Pedal Edema, Other (No pain with flexion extension internal and external rotation of the right hip) Skin: Warm, Dry Neurological: Strength Equal Bilateral, Normal Tone, Sensation Intact. No: Focal Deficit Neuro Extensive - Mental Status: Alert, Oriented x3, Normal Mood/Affect, Normal Cognition, Memory Intact - Patient Data Result Diagrams: 10/20/17 05:10 10/20/17 05:10 Consult PN Assessment/Plan Procedures: Procedures COMP SCREEN MAMMOGRAM ADD-ON (04/30/15) DRAIN/INJ JOINT/BURSA W/O US (08/18/16) EMERGENCY DEPT VISIT (07/01/16) MAMMOGRAM SCREENING (12/31/12) MANUAL THERAPY 1/> REGIONS (08/14/16) MRI JNT OF LWR EXTRE W/O DYE (08/27/16) OFFICE/OUTPATIENT VISIT EST (09/01/16) OFFICE/OUTPATIENT VISIT NEW (08/18/16) PT EVAL LOW COMPLEX 20 MIN (08/08/16) THER/PROPH/DIAG INJ IV PUSH (07/01/16) TTE W/DOPPLER COMPLETE (12/27/12) ULTRASOUND THERAPY (08/14/16) X-RAY EXAM OF KNEE 1 OR 2 (08/18/16) X-RAY EXAM OF KNEE 3 (07/01/16) Problem List Initiated/Reviewed/Updated: Yes My Orders Last 24 Hours: My Active Orders 10/21/17 17:45 Dexamethasone 4 mg IVPUSH Q6H Ibuprofen [Motrin] 400 mg PO Q6H Plan: ASSESSMENT AND RECOMMENDATIONS RIGHT GROIN AND THIGH PAIN-abrupt onset 5 days ago, described as an intense ache which seems to come and go and is definitely worse with movement. Sensation of numbness in the area. No worsening of symptoms with movement at the right hip joint. No improvement following laparoscopic surgery for cystic lesion on the right ovary. Likely represents a radiculopathy from nerve root impingement. -Consider MRI versus CT scan for further evaluation -Decadron IV -Ibuprofen 400 mg by mouth every 6 hours with food STATUS POST LAPAROSCOPIC SURGERY FOR OVARIAN LESION -Postop care per Dr. Wu Requesting Provider: QUYNH Date Consult Requested: 10/21/17 Reason for Consult: Right thigh pain Patient History Reviewed: Yes Admission H&P Reviewed: Yes
[2017-10-21] MEDS: Ibuprofen 400 MG Tab PO SCH ×2 (18:03→23:38)
[2017-10-21] MEDS: Dexamethasone 4 MG/ML SDV IVPUSH SCH (20:20)
[2017-10-22] MEDS: Dexamethasone 4 MG/ML SDV IVPUSH SCH ×2 (01:32→07:48)
[2017-10-22] MEDS: Acetaminophen/oxyCODONE 325-5 MG Tab PO PRN ×2 (01:32→05:37)
[2017-10-22] MEDS: Ibuprofen 400 MG Tab PO SCH (05:38)
--- NOTE | 2017-10-22 06:42 | PCM.SURGPN ---
- General Info Date of Service: 10/22/17 Date of Surgery/Procedure: 10/19/17 POD#: 3 Post-Op Diagnosis: Groin pain and right ovarian cyst. Functional Status: Reports: Pain Controlled, Tolerating Diet, Ambulating ( Sitting in chair. Says she is improved, but has not walked for me. ) - Review of Systems General: Reports: No Symptoms HEENT: Reports: No Symptoms Pulmonary: Reports: No Symptoms Cardiovascular: Reports: No Symptoms Gastrointestinal: Reports: No Symptoms Genitourinary: Reports: No Symptoms Musculoskeletal: Reports: No Symptoms Skin: Reports: No Symptoms Neurological: Reports: No Symptoms Psychiatric: Reports: No Symptoms - Patient Data Vitals - Most Recent: Last Vital Signs Temp 97.1 F 10/22/17 03:00 Pulse 70 10/22/17 03:00 Resp 16 10/22/17 03:00 BP 130/69 10/22/17 03:00 Pulse Ox 91 L 10/22/17 03:00 Weight - Most Recent: 158 lb 0.014 oz I&O - Last 24 Hours: Intake & Output 10/21/17 10/21/17 10/22/17 14:59 22:59 06:59 Intake Total 600 480 Output Total 900 1000 300 Balance -300 -1000 180 Med Orders - Current: Current Medications Dexamethasone (Dexamethasone) 4 mg IVPUSH Q6H [facility] Last Admin: 10/22/17 01:32 Dose: 4 mg Docusate Sodium (Colace) 100 mg PO BID PRN PRN Reason: Constipation Last Admin: 10/21/17 15:15 Dose: 100 mg Fentanyl (Sublimaze) 50 mcg IVPUSH Q1H PRN PRN Reason: Pain (severe 7-10) Last Admin: 10/21/17 10:29 Dose: 50 mcg Hydroxyzine HCl (Vistaril) 50 - 75 mg IM Q4H PRN PRN Reason: Pain Lactated Ringer's (Ringers, Lactated) 1,000 mls @ 100 mls/hr IV ASDIRECTED [facility] Last Admin: 10/20/17 03:08 Dose: 100 mls/hr Ibuprofen (Motrin) 400 mg PO Q6H [facility] Last Admin: 10/22/17 05:38 Dose: 400 mg Ondansetron HCl (Zofran Odt) 4 mg PO Q4H PRN PRN Reason: Nausea/Vomiting Last Admin: 10/20/17 21:50 Dose: 4 mg Oxycodone/Acetaminophen (Percocet 325-5 Mg) 1 - 2 tab PO Q4H PRN PRN Reason: Pain Last Admin: 10/22/17 05:37 Dose: 1 tab Sodium Chloride (Saline Flush) 10 ml FLUSH ONETIME PRN PRN Reason: per radiology protocol Last Admin: 10/19/17 10:41 Dose: 10 ml Discontinued Medications Hydrocodone Bitart/Acetaminophen ([place] 325-5 Mg) 2 tab PO Q4H PRN PRN Reason: Pain (moderate 4-6) Last Admin: 10/19/17 19:26 Dose: 2 tab Bupivacaine HCl (Marcaine 0.5%) Confirm Administered Dose 50 ml .ROUTE .STK-MED ONE Stop: 10/19/17 16:16 Last Admin: 10/19/17 16:20 Dose: 10 ml Dexamethasone (Dexamethasone) Confirm Administered Dose 4 mg .ROUTE .STK-MED ONE Stop: 10/19/17 14:57 Fentanyl (Sublimaze) Confirm Administered Dose 250 mcg .ROUTE .STK-MED ONE Stop: 10/19/17 14:56 Fentanyl (Sublimaze) Confirm Administered Dose 100 mcg .ROUTE .STK-MED ONE Stop: 10/19/17 17:11 Glycopyrrolate (Robinul) Confirm Administered Dose 1 mg .ROUTE .STK-MED ONE Stop: 10/19/17 14:57 Hydromorphone HCl (Dilaudid) 0.5 mg IVPUSH ONETIME ONE Stop: 10/19/17 08:51 Last Admin: 10/19/17 09:11 Dose: 0.5 mg Hydromorphone HCl (Dilaudid) 0.5 mg IVPUSH ONETIME ONE Stop: 10/19/17 10:41 Last Admin: 10/19/17 10:53 Dose: 0.5 mg Hydroxyzine HCl (Vistaril) Confirm Administered Dose 100 mg .ROUTE .STK-MED ONE Stop: 10/19/17 17:13 Last Admin: 10/19/17 17:25 Dose: 100 mg Hydroxyzine HCl (Vistaril) 50 mg IM ONETIME ONE Stop: 10/19/17 17:20 Last Admin: 10/19/17 19:36 Dose: Not Given Sodium Chloride (Normal Saline) 1,000 mls @ 999 mls/hr IV ONETIME ONE Stop: 10/19/17 09:50 Last Admin: 10/19/17 09:06 Dose: 999 mls/hr Sodium Chloride (Normal Saline) 80 mls @ 3 mls/sec IV ASDIRECTED [facility] Last Admin: 10/19/17 10:43 Dose: 3 mls/sec Dextrose/Lactated Ringer's (Dextrose 5%-Lactated Ringers) 1,000 mls @ 100 mls/ hr IV ASDIRECTED [facility] Stop: 10/19/17 23:29 Last Admin: 10/19/17 13:46 Dose: 100 mls/hr Iopamidol (Isovue-300 (61%)) 100 ml IV . DIRECTED PRN PRN Reason: RADIOLOGY EXAM Stop: 10/20/17 10:38 Last Admin: 10/19/17 10:43 Dose: 100 ml Lidocaine/Epinephrine (Xylocaine 1% With Epinephrine 1:100,000) Confirm Administered Dose 50 ml .ROUTE .STK-MED ONE Stop: 10/19/17 14:54 Last Admin: 10/19/17 16:20 Dose: 10 ml Neostigmine Methylsulfate (Neostigmine) Confirm Administered Dose 5 mg .ROUTE .STK-MED ONE Stop: 10/19/17 14:57 Ondansetron HCl (Zofran) Confirm Administered Dose 4 mg .ROUTE .STK-MED ONE Stop: 10/19/17 14:57 Propofol (Diprivan 20 Ml) Confirm Administered Dose 200 mg .ROUTE .STK-MED ONE Stop: 10/19/17 14:57 Rocuronium [place] (Zemuron) Confirm Administered Dose 50 mg .ROUTE .STK-MED ONE Stop: 10/19/17 14:57 Succinylcholine Chloride (Quelicin) Confirm Administered Dose 200 mg .ROUTE .STK -MED ONE Stop: 10/19/17 14:57 - Exam Wound/Incisions: Healing Well, No Drainage General: Alert, Oriented, Cooperative, No Acute Distress Lungs: Clear to Auscultation, Normal Respiratory Effort Cardiovascular: Regular Rate, Regular Rhythm GI/Abdominal Exam: Normal Bowel Sounds, Soft, Non-Tender Extremities: Normal Inspection Skin: Warm, Dry, Intact Neurological: No New Focal Deficit Psy/Mental Status: Alert, Normal Affect, Normal Mood - Problem List & Annotations (1) Status post right oophorectomy SNOMED Code(s): 513143352, 564750703 Code(s): Z90.721 - ACQUIRED ABSENCE OF OVARIES, UNILATERAL Status: Acute Current Visit: Yes (2) Other ovarian cyst, right side SNOMED Code(s): 83555794 Code(s): N83.291 - OTHER OVARIAN CYST, RIGHT SIDE Status: Acute Current Visit: Yes - Problem List Review Problem List Initiated/Reviewed/Updated: Yes - My Orders Last 24 Hours: Active Orders 24 hr Category Date Time Status Notify Provider Consults [RC] ASDIRECTED Care 10/21/17 12:44 Active Consult to Physician [CONS] Routine Cons 10/21/17 12:41 Ordered Dexamethasone Med 10/21/17 20:00 Active 4 mg IVPUSH Q6H Ibuprofen [Motrin] Med 10/21/17 18:00 Active 400 mg PO Q6H Medication Orders Dexamethasone (Dexamethasone) 4 mg IVPUSH Q6H [facility] Last Admin: 10/22/17 01:32 Dose: 4 mg Admin: 10/21/17 20:20 Dose: 4 mg Docusate Sodium (Colace) 100 mg PO BID PRN PRN Reason: Constipation Last Admin: 10/21/17 15:15 Dose: 100 mg Admin: 10/20/17 09:32 Dose: 100 mg Admin: 10/19/17 21:44 Dose: 100 mg Fentanyl (Sublimaze) 50 mcg IVPUSH Q1H PRN PRN Reason: Pain (severe 7-10) Last Admin: 10/21/17 10:29 Dose: 50 mcg Admin: 10/20/17 09:27 Dose: 50 mcg Admin: 10/19/17 21:41 Dose: 50 mcg Hydroxyzine HCl (Vistaril) 50 - 75 mg IM Q4H PRN PRN Reason: Pain Lactated Ringer's (Ringers, Lactated) 1,000 mls @ 100 mls/hr IV ASDIRECTED [facility] Last Admin: 10/20/17 03:08 Dose: 100 mls/hr Infusion: 10/20/17 03:08 Dose: 100 mls/hr Admin: 10/19/17 17:30 Dose: 100 mls/hr Ibuprofen (Motrin) 400 mg PO Q6H [facility] Last Admin: 10/22/17 05:38 Dose: 400 mg Admin: 10/21/17 23:38 Dose: 400 mg Admin: 10/21/17 18:03 Dose: 400 mg Ondansetron HCl (Zofran Odt) 4 mg PO Q4H PRN PRN Reason: Nausea/Vomiting Last Admin: 10/20/17 21:50 Dose: 4 mg Oxycodone/Acetaminophen (Percocet 325-5 Mg) 1 - 2 tab PO Q4H PRN PRN Reason: Pain Last Admin: 10/22/17 05:37 Dose: 1 tab Admin: 10/22/17 01:32 Dose: 2 tab Admin: 10/21/17 20:38 Dose: 1 tab Admin: 10/21/17 15:12 Dose: 2 tab Admin: 10/21/17 10:04 Dose: 2 tab Admin: 10/21/17 04:54 Dose: 2 tab Admin: 10/20/17 21:50 Dose: 2 tab Admin: 10/20/17 14:25 Dose: 2 tab Admin: 10/20/17 09:36 Dose: 2 tab Sodium Chloride (Saline Flush) 10 ml FLUSH ONETIME PRN PRN Reason: per radiology protocol Last Admin: 10/19/17 10:41 Dose: 10 ml - Assessment Assessment (Free Text/Narrative):: Dr. Castro saw her suspecting radiculopathy and started steroids and ibuprofen. She says she is improved today (but she said was yesterday also and ended up not being able to walk due to pain). She is eating well and passing gas. - Plan Plan (Free Text/Narrative):: From surgery standpoint she may go home. Follow.
[2017-10-22] MEDS: Docusate Sodium 100 MG Cap PO PRN (07:48)
[2017-10-22 08:28] VITALS: BP 132/66
--- NOTE | 2017-10-22 10:37 | PCM.CONSN ---
- General Info Date of Service: 10/22/17 Subjective Update: This patient has felt improved since yesterday with less thigh pain, thought to be secondary to a radiculopathy and nerve root impingement. She is been receiving the IV Decadron as well as oral ibuprofen. - Review of Systems General: Reports: Weakness Pulmonary: Reports: No Symptoms Cardiovascular: Reports: No Symptoms Gastrointestinal: Reports: No Symptoms Musculoskeletal: Reports: Other (Right thigh pain) - Patient Data Vitals - Most Recent: Last Vital Signs Temp 96.5 F 10/22/17 08:26 Pulse 72 10/22/17 08:26 Resp 16 10/22/17 08:26 BP 132/66 10/22/17 08:26 Pulse Ox 94 L 10/22/17 08:26 Weight - Most Recent: 158 lb 0.014 oz I&O - Last 24 Hours: Intake & Output 10/21/17 10/22/17 10/22/17 22:59 06:59 14:59 Intake Total 480 Output Total 1000 300 Balance -1000 180 Med Orders - Current: Current Medications Dexamethasone (Dexamethasone) 4 mg IVPUSH Q6H [facility] Last Admin: 10/22/17 07:48 Dose: 4 mg Docusate Sodium (Colace) 100 mg PO BID PRN PRN Reason: Constipation Last Admin: 10/22/17 07:48 Dose: 100 mg Fentanyl (Sublimaze) 50 mcg IVPUSH Q1H PRN PRN Reason: Pain (severe 7-10) Last Admin: 10/21/17 10:29 Dose: 50 mcg Hydroxyzine HCl (Vistaril) 50 - 75 mg IM Q4H PRN PRN Reason: Pain Lactated Ringer's (Ringers, Lactated) 1,000 mls @ 100 mls/hr IV ASDIRECTED [facility] Last Admin: 10/20/17 03:08 Dose: 100 mls/hr Ibuprofen (Motrin) 400 mg PO Q6H [facility] Last Admin: 10/22/17 05:38 Dose: 400 mg Ondansetron HCl (Zofran Odt) 4 mg PO Q4H PRN PRN Reason: Nausea/Vomiting Last Admin: 10/20/17 21:50 Dose: 4 mg Oxycodone/Acetaminophen (Percocet 325-5 Mg) 1 - 2 tab PO Q4H PRN PRN Reason: Pain Last Admin: 10/22/17 05:37 Dose: 1 tab Sodium Chloride (Saline Flush) 10 ml FLUSH ONETIME PRN PRN Reason: per radiology protocol Last Admin: 10/19/17 10:41 Dose: 10 ml Discontinued Medications Hydrocodone Bitart/Acetaminophen ([place] 325-5 Mg) 2 tab PO Q4H PRN PRN Reason: Pain (moderate 4-6) Last Admin: 10/19/17 19:26 Dose: 2 tab Bupivacaine HCl (Marcaine 0.5%) Confirm Administered Dose 50 ml .ROUTE .STK-MED ONE Stop: 10/19/17 16:16 Last Admin: 10/19/17 16:20 Dose: 10 ml Dexamethasone (Dexamethasone) Confirm Administered Dose 4 mg .ROUTE .STK-MED ONE Stop: 10/19/17 14:57 Fentanyl (Sublimaze) Confirm Administered Dose 250 mcg .ROUTE .STK-MED ONE Stop: 10/19/17 14:56 Fentanyl (Sublimaze) Confirm Administered Dose 100 mcg .ROUTE .STK-MED ONE Stop: 10/19/17 17:11 Glycopyrrolate (Robinul) Confirm Administered Dose 1 mg .ROUTE .STK-MED ONE Stop: 10/19/17 14:57 Hydromorphone HCl (Dilaudid) 0.5 mg IVPUSH ONETIME ONE Stop: 10/19/17 08:51 Last Admin: 10/19/17 09:11 Dose: 0.5 mg Hydromorphone HCl (Dilaudid) 0.5 mg IVPUSH ONETIME ONE Stop: 10/19/17 10:41 Last Admin: 10/19/17 10:53 Dose: 0.5 mg Hydroxyzine HCl (Vistaril) Confirm Administered Dose 100 mg .ROUTE .STK-MED ONE Stop: 10/19/17 17:13 Last Admin: 10/19/17 17:25 Dose: 100 mg Hydroxyzine HCl (Vistaril) 50 mg IM ONETIME ONE Stop: 10/19/17 17:20 Last Admin: 10/19/17 19:36 Dose: Not Given Sodium Chloride (Normal Saline) 1,000 mls @ 999 mls/hr IV ONETIME ONE Stop: 10/19/17 09:50 Last Admin: 10/19/17 09:06 Dose: 999 mls/hr Sodium Chloride (Normal Saline) 80 mls @ 3 mls/sec IV ASDIRECTED [facility] Last Admin: 10/19/17 10:43 Dose: 3 mls/sec Dextrose/Lactated Ringer's (Dextrose 5%-Lactated Ringers) 1,000 mls @ 100 mls/ hr IV ASDIRECTED [facility] Stop: 10/19/17 23:29 Last Admin: 10/19/17 13:46 Dose: 100 mls/hr Iopamidol (Isovue-300 (61%)) 100 ml IV . DIRECTED PRN PRN Reason: RADIOLOGY EXAM Stop: 10/20/17 10:38 Last Admin: 10/19/17 10:43 Dose: 100 ml Lidocaine/Epinephrine (Xylocaine 1% With Epinephrine 1:100,000) Confirm Administered Dose 50 ml .ROUTE .STK-MED ONE Stop: 10/19/17 14:54 Last Admin: 10/19/17 16:20 Dose: 10 ml Neostigmine Methylsulfate (Neostigmine) Confirm Administered Dose 5 mg .ROUTE .STK-MED ONE Stop: 10/19/17 14:57 Ondansetron HCl (Zofran) Confirm Administered Dose 4 mg .ROUTE .STK-MED ONE Stop: 10/19/17 14:57 Propofol (Diprivan 20 Ml) Confirm Administered Dose 200 mg .ROUTE .STK-MED ONE Stop: 10/19/17 14:57 Rocuronium [place] (Zemuron) Confirm Administered Dose 50 mg .ROUTE .STK-MED ONE Stop: 10/19/17 14:57 Succinylcholine Chloride (Quelicin) Confirm Administered Dose 200 mg .ROUTE .STK -MED ONE Stop: 10/19/17 14:57 - Exam General: Alert, Oriented, Cooperative, Mild Distress Lungs: Clear to Auscultation, Normal Respiratory Effort Cardiovascular: Regular Rate, Regular Rhythm GI/Abdominal Exam: Soft, No Organomegaly, No Distention, Tender. No: Guarding, Rigid, Rebound Consult PN Assessment/Plan Procedures: Procedures COMP SCREEN MAMMOGRAM ADD-ON (04/30/15) DRAIN/INJ JOINT/BURSA W/O US (08/18/16) EMERGENCY DEPT VISIT (07/01/16) MAMMOGRAM SCREENING (12/31/12) MANUAL THERAPY 1/> REGIONS (08/14/16) MRI JNT OF LWR EXTRE W/O DYE (08/27/16) OFFICE/OUTPATIENT VISIT EST (09/01/16) OFFICE/OUTPATIENT VISIT NEW (08/18/16) PT EVAL LOW COMPLEX 20 MIN (08/08/16) THER/PROPH/DIAG INJ IV PUSH (07/01/16) TTE W/DOPPLER COMPLETE (12/27/12) ULTRASOUND THERAPY (08/14/16) X-RAY EXAM OF KNEE 1 OR 2 (08/18/16) X-RAY EXAM OF KNEE 3 (07/01/16) Problem List Initiated/Reviewed/Updated: Yes My Orders Last 24 Hours: My Active Orders 10/21/17 18:00 Ibuprofen [Motrin] 400 mg PO Q6H 10/21/17 20:00 Dexamethasone 4 mg IVPUSH Q6H Plan: ASSESSMENT AND RECOMMENDATIONS RIGHT GROIN AND THIGH PAIN-abrupt onset 5 days ago, described as an intense ache which seems to come and go and is definitely worse with movement. Sensation of numbness in the area. No worsening of symptoms with movement at the right hip joint. No improvement following laparoscopic surgery for cystic lesion on the right ovary. Likely represents a radiculopathy from nerve root impingement. Pain significantly improved over the past 24 hours with current management. Will plan to discharged home on 4 days of oral Decadron and ibuprofen as needed. Follow-up with primary care provider within one week -Decadron 4 mg by mouth twice a day 4 days -Ibuprofen 400 mg by mouth every 6 hours as needed with food -Follow-up with primary care provider within one week STATUS POST LAPAROSCOPIC SURGERY FOR OVARIAN LESION -Postop care per Dr. Wu
== END 2017-10-22 13:00 | disposition home or self-care (01) | DRG 743 ==
LOC: JP.ED 07:53 → JP.SDS 15:20 → JP.MS 16:52
PROVIDERS: ADMIT Surgery; ATTEND Surgery
PROC: 0UT04ZZ Resection of Right Ovary, Percutaneous Endoscopic Approach (ICD-10-PCS; principal; 2017-10-19)
PROC: 0UT54ZZ Resection of Right Fallopian Tube, Percutaneous Endoscopic Approach (ICD-10-PCS; 2017-10-19)
DX: N83.291 Other ovarian cyst, right side (principal); R10.31 Right lower quadrant pain; R10.2 Pelvic and perineal pain; M25.551 Pain in right hip; F17.210 Nicotine dependence, cigarettes, uncomplicated; M54.10 Radiculopathy, site unspecified; R10.30 Lower abdominal pain, unspecified; M19.90 Unspecified osteoarthritis, unspecified site; H35.30 Unspecified macular degeneration; Z88.8 Allergy status to other drugs, medicaments and biological substances; Z91.048 Other nonmedicinal substance allergy status
CPT/HCPCS: 36415; 58661; 74177 ×2; 76830 ×2; 76856 ×2; 80053; 81001; 85025; 96361; 96374; 96376; 99285; J0330; J1100; J1170; J2405; J2704; J2710; J3010; J7030 ×2; J7042; J7050; Q9967; 80048; 88307; 96372; 97162-GP; 97530-GP; 97535-GP; A9270-GY; J3410; J7120